=== PATIENT | female | born 1955 | race Two or more races ===

== ENCOUNTER → 2022-11-15 | Outpatient (REF) | payer MEDICARE, OTHER ==
[~2022-11-15] MED LIST: BROV15NE INH; BUDE0.25 INH; CITA20TA2 PO; IPRA2IN INH; LEVA12INH INH; ONDA-1 PO; POLY1POW4 GT; POLY1POW4 PO; PRED-351 FT; PRED10TA2 PO; PRED1TAB32 FT; PRED20TA PO; PULM1SUS IN; SENO1TAB PO; VALIUM PO; VENTAER PO; [UNRECOGNIZED DRUG - CODE] GT; [UNRECOGNIZED DRUG - CODE] PO; [UNRECOGNIZED DRUG - CODE] PO
== END ==
LOC: M SFHCWAGY 16:56
PROVIDERS: ATTEND Nurse Practitioner Family
DX: N94.10 Unspecified dyspareunia (principal); N73.9 Female pelvic inflammatory disease, unspecified

== ENCOUNTER → 2023-01-27 | Outpatient (CLI) | payer OTHER | LOC: M WHC 14:39 | PROVIDERS: ATTEND Nurse Practitioner Family | DX: N94.10 Unspecified dyspareunia (principal); R14.0 Abdominal distension (gaseous); Z90.710 Acquired absence of both cervix and uterus ==

== ENCOUNTER → 2023-05-10 | Outpatient (CLI) | payer OTHER | LOC: M WHC 14:11 | PROVIDERS: ATTEND Nurse Practitioner Family | DX: Z12.31 Encounter for screening mammogram for malignant neoplasm of breast (principal) ==

== ENCOUNTER → 2023-06-29 | Outpatient (REF) | payer OTHER, MEDICARE, MEDICAID | LOC: M SFHCDERM 12:59 | PROVIDERS: ATTEND Physician Assistant | DX: L82.1 Other seborrheic keratosis (principal) ==

== ENCOUNTER 2024-10-13 16:24 | Emergency (ER) | payer MEDICARE, MEDICAID ==
[~2024-10-13] VITALS: Ht 162.6 cm; Wt 55.5 kg
[2024-10-13] MEDS ORDERED: ISOVUE-370 76% 100 ML VIAL As Ordered ONE (17:42)
[2024-10-13 18:20] LABS: BASO # 0.1 10^3/uL (0.0-0.2); BASO % 0.5 % (0.0-1.0); EOS # 0.1 10^3/uL (0.0-0.5); EOS % 0.6 % (0.0-3.0); LYMPH # 1.4 10^3/uL (1.5-5.0); LYMPH % 12.2 % (24.0-44.0); MONO # 0.7 10^3/uL (0.0-0.8); MONO % 5.9 % (2.0-8.0); NEUTROPHILS # 9.3 10^3/uL (1.5-8.5); NEUTROPHILS % 80.4 % (36.0-66.0); PLATELET COUNT, AUTOMATED 240 10^3/uL (150-450)
[2024-10-13 18:33] LABS: ETHYL ALCOHOL (ETHANOL) 0.003 % (0.000-0.010); MAGNESIUM LEVEL 1.6 MG/DL (1.8-2.4)
[2024-10-13] MEDS ORDERED: ALBU2.5V10 INH (18:33)
[2024-10-13] MEDS ORDERED: OMEP40CA5 PO (18:33)
[2024-10-13] MEDS ORDERED: ALBU8.5H INH (18:33)
[2024-10-13] MEDS: MAG SULF 1GM/100ML (MAG RUN) 1 GM in IV 1 EA IV ONE (18:52)
[2024-10-13] MEDS ORDERED: PROHANCE 279.3MG/ML 15ML VIAL As Ordered ONE (19:52)
[2024-10-13] MEDS: ONDANSETRON 4MG 2ML VIAL IV ONE (19:55)
[2024-10-13] MEDS ORDERED: ESTR62CR VG (22:35)
[2024-10-13] MEDS ORDERED: HOME MED LIST COMPLETE! XX SCH (22:40)
[2024-10-13 23:28] LABS: CK-MB VALUE MASS 1.7 NG/ML (<3.6)
[2024-10-13 23:29] LABS: CPK CREATINE PHOSPHOKINASE 85.0 U/L (34-145); MB/CK RELATIVE INDEX 2.0 (< OR =4)
[2024-10-14] MEDS ORDERED: ATIV1TAB10 PO (00:21)
[2024-10-14 00:30] VITALS: TEMP 98; O2SAT 94
[2024-10-14 00:31] VITALS: BP 138/66
== END 2024-10-14 01:05 | disposition home or self-care (01) ==
LOC: EDBD 16:24 → M ED 16:24
DX: R55 Syncope and collapse (principal); F41.9 Anxiety disorder, unspecified; Z85.72 Personal history of non-Hodgkin lymphomas; Z94.81 Bone marrow transplant status; M35.00 Sjogren syndrome, unspecified; F32.A Depression, unspecified; Z87.19 Personal history of other diseases of the digestive system; J44.9 Chronic obstructive pulmonary disease, unspecified; K57.92 Diverticulitis of intestine, part unspecified, without perforation or abscess without bleeding; Z87.891 Personal history of nicotine dependence; E66.9 Obesity, unspecified; Z88.8 Allergy status to other drugs, medicaments and biological substances; Z91.013 Allergy to seafood
CPT/HCPCS: 70450; 70496; 70498; 70549; 70551; 80047; 82077; 82550; 82553; 83735; 84443; 84484; 85025; 93005; 93041; 94760; 96374; 96375; 99285; A9576; J2405; J3475; Q9967

== ENCOUNTER → 2024-11-02 | Outpatient (REF) | payer MEDICARE, MEDICAID ==
[~2024-11-02] MED LIST changes: +ALBU2.5V10 INH; +ALBU8.5H INH; +ATIV1TAB10 PO; +ESTR62CR VG; +OMEP40CA5 PO
== END ==
LOC: M SFHCDERM 17:16
PROVIDERS: ATTEND Physician Assistant
DX: D49.2 Neoplasm of unspecified behavior of bone, soft tissue, and skin (principal); L82.1 Other seborrheic keratosis